=== PATIENT | male | born 1955 | race Caucasian/White ===

== ENCOUNTER 2018-11-29 12:24 | Outpatient (REF) | payer BC, SELFPAY ==
[2018-11-29 21:13] LABS: Anion Gap 9.8 mmol/L (3-11); BUN 24 mg/dL (7-18); CO2 26.2 mmol/L (21.0-32.0); CREATININE 1.55 mg/dL (0.70-1.30); Chloride 103 mmol/L (98-107); Estimated GFR 45.23 (mL/min/1.73m2); Glucose 107 mg/dL (70-100); Potassium 3.9 mmol/L (3.5-5.1); Sodium 139 mmol/L (136-145)
[2018-12-03 10:38] LABS: PSA, Screening 10.2 ng/ml (0-4.5)
== END 2018-11-29 12:44 ==
LOC: NCHCN 12:24
PROVIDERS: PCP General Practice; Visit Provider Specialist/Technologist Athletic Trainer
DX: Z00.00 Encounter for general adult medical examination without abnormal findings (principal); Z12.5 Encounter for screening for malignant neoplasm of prostate; Z13.228 Encounter for screening for other metabolic disorders
CPT/HCPCS: 80048; 84153

== ENCOUNTER 2018-12-21 09:41 | Outpatient (REF) | payer BC, SELFPAY ==
[2018-12-21 21:38] LABS: Anion Gap 13.4 mmol/L (3-11); BUN 23 mg/dL (7-18); CO2 25.6 mmol/L (21.0-32.0); CREATININE 1.48 mg/dL (0.70-1.30); Calcium 8.9 mg/dL (8.5-10.1); Chloride 107 mmol/L (98-107); Glucose 114 mg/dL (70-100); Potassium 3.8 mmol/L (3.5-5.1); Sodium 146 mmol/L (136-145)
[2018-12-24 10:53] LABS: PSA, Diagnostic 13.2 ng/ml (0-4.5)
== END 2018-12-21 10:01 ==
LOC: NCHCN 09:41
PROVIDERS: PCP General Practice; Visit Provider Specialist/Technologist Athletic Trainer
DX: I10 Essential (primary) hypertension (principal); N40.0 Benign prostatic hyperplasia without lower urinary tract symptoms
CPT/HCPCS: 80048; 84153

== ENCOUNTER 2019-01-16 09:17 | Outpatient (CLI) | payer BC, SELFPAY ==
--- NOTE | 2019-01-16 15:57 | DI.US_ITS ---
SYMPTOM/DIAGNOSIS: ELEVATED CREATININE R94.4 RENAL ULTRASOUND: The right kidney measures 15.2 x 11.8 x 9.1 x 10.4 cm. The left kidney measures 13.7 x 6 x 6.5 cm. An irregular cyst measuring 6.8 x 4.5 x 4.1 cm is demonstrated. The findings could represent mild hydronephrosis. There are multiple stones in the left kidney, the largest measuring up to 1 cm. SUMMARY: Question left renal irregular cyst vs mild hydronephrosis. Nephrolithiasis is demonstrated.
== END 2019-01-16 09:37 ==
PROVIDERS: PCP Specialist/Technologist Athletic Trainer; Visit Provider Specialist/Technologist Athletic Trainer
DX: R94.4 Abnormal results of kidney function studies (principal); N28.1 Cyst of kidney, acquired; N20.0 Calculus of kidney
CPT/HCPCS: 76770